=== PATIENT | female | born 1960 | race Caucasian/White ===

== ENCOUNTER 2025-06-24 17:48 | Emergency (ER) | payer OTHER ==
[2025-06-24 18:42] LABS: Glucose, Urine (Dipstick) Normal (Negative); Leukocyte Negative (Negative); Protein, Urine (Dipstick) Negative (Neg-Trace); Specific Gravity, Urine 1.010 (1.005-1.030)
[2025-06-24 18:48] LABS: RBC/HPF None Seen HPF (0-3)
[2025-06-24 18:50] LABS: Bacteria/HPF 4+ HPF (None Seen); CAUTI Indications for Culture Pelvic or flank pain; WBC/HPF 0-3 HPF (0-3)
[2025-06-24 18:51] LABS: Mucous/LPF Rare LPF (<2+); Urine Culture Reflex No No
== END 2025-06-24 19:03 ==
LOC: CSHERS 17:48
DX: Z53.21 Procedure and treatment not carried out due to patient leaving prior to being seen by health care provider (principal); E11.9 Type 2 diabetes mellitus without complications; I10 Essential (primary) hypertension; J44.9 Chronic obstructive pulmonary disease, unspecified; F17.210 Nicotine dependence, cigarettes, uncomplicated; Z86.73 Personal history of transient ischemic attack (TIA), and cerebral infarction without residual deficits
CPT/HCPCS: 81001